=== PATIENT | female | born 1995 | race African-American/Black ===

== ENCOUNTER 2019-07-11 14:16 | Emergency (ER) | payer OTHER ==
--- NOTE | 2019-07-11 17:07 | ED ---
Back Pain - HPI Summary HPI Summary: Patient is a 24 y/o F presenting to [facility] with complaints of lower back pain. She states that her pain radiates down her spine and that she woke up this morning with this pain. 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 She states that she has had pelvic issues since she was [age]. Last year, she started going to physical therapy and found out about her nerve damage and atrophied muscles at this time. She notes that she has had episodes of back pain previously, but not as severe. Pain has been waxing and waning in intensity and is rated 10/10. She denies recent heavy lifting or straining. Movement does not aggravate pain. Patient reports having two episodes of diarrhea but denies bladder/bowel incontinence. She endorses some abdominal pain but denies urinary Sx. Patient took tramadol from an old prescription with no relief in Sx. She additionally states that she took 3x200 mg ibuprofen. Hx of diabetes, blood infections, and IV drug usage is denied. She notes that she has received an epidural when she had her daughter 1.5 years ago. Patient reports that she is allergic to lidocaine, stating that she becomes pruritic and that it "lynch me like lava". She reports no known allergies to pain medications. Patient does not report any fever, chills, erythema of eyes, sore throat, CP, SOB, cough, N/V, dysuria, hematuria, edema, rash, and dizziness. Home medications and allergies are reviewed. - History of Current Complaint Chief Complaint: EDBackInjuryPain Stated Complaint: SEVERE BACK PAIN PER PT Time Seen by Provider: 07/11/19 16:45 Hx Obtained From: Patient Onset/Duration: Lasting Hours, Still Present Onset/Duration: Started Hours Ago, Still Present Timing: Lasting Hours Back Pain Location: Is Discrete @ - back, abdomen Severity Initially: Severe Severity Currently: Severe Pain Intensity: 8 Pain Scale Used: 0-10 Numeric Associated Signs And Symptoms: Positive: Abdominal Pain, Other - positive - back pain, diarrhea; negative - heavy lifting and straining, fever, chills, erythema of eyes, sore throat, CP, SOB, cough, N/V, dysuria, hematuria, edema, rash, and dizziness. Negative: Swelling, Fever, Bladder Incontinence, Bowel Incontinence - Allergies/Home Medications Allergies/Adverse Reactions: Allergies Allergy/AdvReac Type Severity Reaction Status Date / Time Penicillins Allergy Unknown Verified 07/11/19 16:50 Reaction Details PMH/Surg Hx/FS Hx/Imm Hx Musculoskeletal History: Reports: Other Musculoskeletal History - atrophied muscles, pelvic Neurological History: Reports: Other Neuro Impairments/Disorders - nerve damage , pelvic Infectious Disease History: No Infectious Disease History: Denies: Traveled Outside the [place] in Last 30 Days - Family History Known Family History: Positive: Other - no FMHx of pelvic nerve damage - Social History Alcohol Use: Occasionally Substance Use Type: Reports: None Smoking Status (MU): Light Every Day Tobacco Smoker Review of Systems Negative: Fever, Chills Negative: Erythema Negative: Sore Throat Negative: Chest Pain Negative: Shortness Of Breath, Cough Positive: Abdominal Pain, Diarrhea. Negative: Vomiting, Nausea Positive: no symptoms reported - no urinary Sx reported . Negative: dysuria, hematuria, incontinence Musculoskeletal: Other - no recent heavy lifting or straining Positive: Myalgia - back pain. Negative: Edema Negative: Rash Neurological: Other - negative - dizziness All Other Systems Reviewed And Are Negative: Yes Physical Exam - Summary Physical Exam Summary: Constitutional: Well-developed, Well-nourished, Alert. (-) Distressed, does not appear to be in any significant pain Skin: Warm, Dry HENT: Normocephalic; Atraumatic Eyes: Conjunctiva normal Neck: Musculoskeletal ROM normal neck. (-) JVD, (-) Stridor, (-) Tracheal deviation Cardio: Rhythm regular, rate normal, Heart sounds normal; Intact distal pulses; The pedal pulses are 2+ and symmetric. Radial pulses are 2+ and symmetric. (-) Murmur Pulmonary/Chest wall: Effort normal. (-) Respiratory distress, (-) Wheezes, (-) Rales Abd: Soft, (-) tenderness, (-) Distension, (-) Guarding, (-) Rebound Musculoskeletal: (-) Edema; Straight leg test was negative, strength 5/5, FROM Lymph: (-) Cervical adenopathy Neuro: Alert, Oriented x3 Psych: Mood and affect Normal Triage Information Reviewed: Yes Vital Signs On Initial Exam: Initial Vitals Temp Pulse Resp BP Pulse Ox 98.2 F 89 16 120/85 99 07/11/19 14:18 07/11/19 14:18 07/11/19 14:18 07/11/19 14:18 07/11/19 14:18 Vital Signs Reviewed: Yes Diagnostics - Vital Signs Vital Signs Temp Pulse Resp BP Pulse Ox 07/11/19 14:18 98.2 F 89 16 120/85 99 - Laboratory Result Diagrams: 07/11/19 16:59 07/11/19 16:59 Lab Statement: Any lab studies that have been ordered have been reviewed, and results considered in the medical decision making process. - CT ABD/PEL CT CT Interpretation Completed By: Radiologist Summary of CT Findings: IMPRESSION: No evidence of hydronephrosis or renal calculi. Faint renal calcification. suggestive of early medullary sponge disease. Retroverted uterus with a trace of free fluid. No adnexal masses. THIS REPORT WAS REVIEWED BY DR. GONSALVES. Back Pain Course/Dx - Course Course Of Treatment: Patient is a 24 y/o F presenting to [facility] with complaints of back pain. She states that her pain radiates down her spine and that she woke up this morning with this pain. 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 She states that she has had pelvic issues since she was [age]. Last year, she started going to physical therapy and found out about her nerve damage and atrophied muscles at this time. She notes that she has had episodes of back pain previously, but not as severe. Pain has been waxing and waning in intensity and is rated 10/10. She denies recent heavy lifting or straining. Movement does not aggravate pain. Patient reports having two episodes of diarrhea but denies bladder/bowel incontinence. She endorses some abdominal pain but denies urinary Sx. Patient took tramadol from an old prescription with no relief in Sx. She additionally states that she took 3x200 mg ibuprofen. Hx of diabetes, blood infections, and IV drug usage is denied. She notes that she has received an epidural when she had her daughter 1.5 years ago. Patient reports that she is allergic to lidocaine, stating that she becomes pruritic and that it "lynch me like lava". She reports no known allergies to pain medications. On physical exam, Straight leg test was negative , strength 5/5, FROM. Patient is in no acute distress. CT ABD/PEL IMPRESSION: No evidence of hydronephrosis or renal calculi. Faint renal calcification. suggestive of early medullary sponge disease. Retroverted uterus with a trace of free fluid. No adnexal masses. Bloodwork was obtained. Abnormal values include WBC 13.2, BUN/creatinine ratio 6.9, calcium 8.5. UA showed 1+ blood, trace WBC, 1+ RBC, present squamous epith cells. During ED course, patient received toradol 60 mg IM and norco 5-325 tab. Patient is signed out to Dr. Wright at 1900 07/11/19 shift change pending results of Transvaginal US. - Diagnoses Provider Diagnoses: Lower back pain Discharge ED - Sign-Out/Discharge Documenting (check all that apply): Sign-Out Patient Signing out patient TO: Dalia Wright - Discharge Plan Referrals: Brody Gaines MD [Primary Care Provider] - - Attestation Statements Document Initiated by Scribe: Yes Documenting Scribe: ADOLFO SHIN Provider For Whom Scribe is Documenting (Include Credential): AJAY GONSALVES MD Scribe Attestation: I, ADOLFO SHIN, scribed for AJAY GONSALVES MD on 07/11/19 at 2000. Status of Scribe Document: Ready
[2019-07-11] MEDS ORDERED: HYDROcodone/ACETAMIN 5-325 MG* 1 TAB PO ONE (17:13)
[2019-07-11 17:14] LABS: Hematocrit 41 % (35-47); Hemoglobin 13.8 g/dL (12.0-16.0); Mean Corpuscular HGB Conc 34 g/dL (31-36); Mean Corpuscular Hemoglobin 29 pg (27-31); Mean Corpuscular Volume 86 fL (80-97); Mean Platelet Volume 8.2 fL (7.4-10.4); Platelet Count 355 10^3/uL (150-450); Red Blood Count 4.73 10^6 /uL (3.70-4.87); Red Cell Distribution Width 13 % (10-15); White Blood Count 13.2 10^3/uL (3.5-10.8)
[2019-07-11] MEDS ORDERED: Ketorolac *IM* INJ* 60 MG/2 ML VIAL IM ONE (17:27)
[2019-07-11 17:32] LABS: Urine Appearance Cloudy; Urine Bacteria Absent (Absent); Urine Bilirubin Negative (Negative); Urine Blood 1+ (Negative); Urine Color Yellow; Urine Glucose Negative (Negative); Urine Ketones Negative (Negative); Urine Nitrite Negative (Negative); Urine Protein Negative (Negative); Urine Red Blood Cell 1+(3-5/hpf) (Absent); Urine Specific Gravity 1.018 (1.010-1.030); Urine Squamous Epithelial Cell Present (Absent); Urine Urobilinogen Negative (Negative); Urine White Blood Cell Trace(0-5/hpf) (Absent)
[2019-07-11 17:38] LABS: ALT 11 U/L (7-52); AST 13 U/L (13-39); Albumin 4.2 g/dL (3.2-5.2); Albumin/Globulin Ratio 1.2 (1-3); Alkaline Phosphatase 62 U/L (34-104); Anion Gap 7 mmol/L (2-11); BUN/Creatinine Ratio 6.9 (8-20); Blood Urea Nitrogen 6 mg/dL (6-24); CO2 Carbon Dioxide 25 mmol/L (22-32); Calcium 8.5 mg/dL (8.6-10.3); Chloride 104 mmol/L (101-111); EGFR African American 95.2 (>60); EGFR Non-African American 78.7 (>60); Globulin 3.4 g/dL (2-4); Glucose 84 mg/dL (70-100); Potassium 3.7 mmol/L (3.5-5.0); Sodium 136 mmol/L (135-145); Total Protein 7.6 g/dL (6.4-8.9)
[2019-07-11 17:41] LABS: HCG Pregnancy < 0.60 mIU/mL
--- NOTE | 2019-07-11 19:54 | ED ---
Progress - Progress Note Progress Note: Pt is a signout from Dr. Crespo at 1900 on 07/11/19 pending transvaginal US. - Results/Orders Results/Orders: Transvaginal US shows: Minimal free fluid could be from a recently ruptured cyst. Otherwise normal pelvic ultrasound. ED physician has reviewed this report. Re-Evaluation - Re-Evaluation 1st re-eval Re-Evaluation Time: 19:55 Change: Improved Comment: Transvaginal US was unremarkable aside from possible small cyst. Pt is stable for discharge, shes going to f/u w her physical therapist. Given pain medication and instructed her to f/u with her PCP. Course/Dx - Diagnoses Provider Diagnoses: Back pain, Lower back pain Discharge ED - Sign-Out/Discharge Documenting (check all that apply): Patient Departure, Receiving Sign-Out Receiving patient FROM: Joni Crespo Patient Received Moderate/Deep Sedation with Procedure: No - Discharge Plan Condition: Stable Disposition: HOME Prescriptions: oxyCODONE/Acetamin 5/325 MG* [Percocet 5/325 TAB*] 1 tab PO Q6H PRN 3 Days #12 tab MDD 4 PRN Reason: Pain Patient Education Materials: Back Pain (ED) Referrals: Brody Gaines MD [Primary Care Provider] - Additional Instructions: You were seen in the emergency department for back pain. Your CT scan did not show cause for your pain. Your transvaginal ultrasound showed a possible ruptured cyst, which is a normal part of the menstrual cycle. If any studies were not completed at the time of discharge you will be called with the relevant results. Please follow up with your primary care doctor in next 2-3 days and return to emergency department for worsening back pain, numbness or numbness in her lower extremities, bowel or bladder problems, or concerning symptoms. It was a pleasure taking care of you today. - Billing Disposition and Condition Condition: STABLE Disposition: Home - Attestation Statements Document Initiated by Scribe: Yes Documenting Scribe: Paola Mustafa Provider For Whom Gabe is Documenting (Include Credential): Dalia Wright MD. Scribe Attestation: IPaola, scribed for Dalia Wright MD. on 07/11/19 at 2220. Scribe Documentation Reviewed: Yes Provider Attestation: The documentation as recorded by the scribe, Paola Mustafa accurately reflects the service I personally performed and the decisions made by me, Dalia Wright MD. Status of Scribe Document: Viewed
[2019-07-11 20:16] VITALS: BP 117/80
== END 2019-07-11 20:15 | disposition home or self-care (01) ==
LOC: ED 14:16
DX: M54.9 Dorsalgia, unspecified (principal); M54.5 Low back pain; R10.9 Unspecified abdominal pain; R19.7 Diarrhea, unspecified; Z88.0 Allergy status to penicillin
CPT/HCPCS: 36415; 74176; 76830; 80053; 81003; 81015; 84702; 85027; 87086; 96372; 99282; J1885